=== PATIENT | male | born 1995 | race African-American/Black ===

== ENCOUNTER 2023-07-28 17:18 | Emergency (ER) | payer OTHER ==
[~2023-07-28] VITALS: Ht 175.3 cm; Wt 71.5 kg
[2023-07-28 17:32] VITALS: TEMP 97.7
[2023-07-28 18:37] LABS: BASOPHILS % (AUTO) 0.4 % (0.0-2.0); EOSINOPHILS % (AUTO) 0.9 % (1.0-6.0); HEMATOCRIT 24.3 % (41-53); HEMOGLOBIN 8.1 g/dL (13.5-17.5); LYMPHOCYTES # (AUTO) 0.5 K/uL (1.0-4.8); LYMPHOCYTES % (AUTO) 20.5 % (22.0-44.0); MEAN CORPUSCULAR HEMOGLOBIN 30.7 pg (26.0-34.0); MEAN CORPUSCULAR HGB CONC 33.2 G/dL (31.0-37.0); MEAN CORPUSCULAR VOLUME 93 fL (80-100); MONOCYTES # (AUTO) 0.1 K/uL (0.1-1.0); MONOCYTES % (AUTO) 5.2 % (2.0-9.0); NEUTROPHILS # (AUTO) 1.7 K/uL (1.8-7.7); PLATELET COUNT (AUTO) 141 K/uL (150-450); RED BLOOD CELL COUNT(AUTO) 2.63 MIL/uL (4.50-5.90); RED CELL DISTRIBUTION WIDTH 21.5 % (11.5-14.5); WHITE BLOOD COUNT (AUTO) 2.4 K/uL (4.5-11.0)
[2023-07-28 18:49] LABS: ANION GAP 6 mmol/L (8-16); CALCIUM, TOTAL 8.2 mg/dL (8.8-10.5); CARBON DIOXIDE 26 mmol/L (22-29); CHLORIDE 105 mmol/L (98-107); CREATININE 0.56 mg/dL (0.60-1.30); GLOMERULAR FILTR. RATE CALC > 60 mL/min (>60); GLUCOSE,RANDOM 99 mg/dL (70-110); POTASSIUM 3.8 mmol/L (3.5-5.1); SODIUM SERUM 137 mmol/L (136-145); UREA NITROGEN, BLOOD 7 mg/dL (7-18)
[2023-07-28 18:54] LABS: ALANINE AMINOTRANSFERASE 28 U/L (12-78); ALBUMIN 2.8 g/dL (3.4-5.0); ALKALINE PHOSPHATASE 97 U/L (46-116); ASPARTATE AMINOTRANSFERASE 34 U/L (15-37); BILIRUBIN,TOTAL 0.8 mg/dL (0.1-1.0); CREATINE KINASE, TOTAL ONLY 49 U/L (39-308); PHOSPHORUS 3.4 mg/dL (2.5-4.9); TOTAL PROTEIN, SERUM 6.2 g/dL (6.4-8.2)
[2023-07-28 18:59] LABS: LACTIC ACID 1.7 mmol/L (0.4-2.0)
[2023-07-28 19:00] LABS: TROPONIN I-HIGH SENSITIVITY 5 ng/L (<76)
[2023-07-28 19:08] LABS: B-TYPE NATRIURETIC PEPTIDE 26 pg/mL (0-100)
[2023-07-28 19:13] LABS: RBC MORPHOLOGY COMMENT ABNORMAL RBC MORPH
[2023-07-28] MEDS: CefTRIAXone 1 GM/DEXTROSE 50 ML IV ONE (19:31)
[2023-07-28] MEDS: AZITHROMYCIN 500 MG/NS 250 ML IV ONE (19:54)
[2023-07-28] MEDS: ACETAMINOPHEN 500 MG TABLET PO ONE (21:05)
[2023-07-28] MEDS: SODIUM CHLORIDE 0.9% 1,000 ML IV ONE (21:05)
[2023-07-28 21:38] VITALS: BP 104/64; PULSE 76; RESP 18
[2023-07-28 21:52] LABS: COVID AG,FIA SOURCE NASAL SWAB
[2023-07-28 22:16] LABS: INFLUENZA TYPE A NEGATIVE FOR TYPE A (NEGATIVE); INFLUENZA TYPE B NEGATIVE FOR TYPE B (NEGATIVE); SARS-COV2 (COVID) ANTIGEN,FIA Negative (Negative)
== END 2023-07-28 22:30 | disposition short-term general hospital (02) ==
LOC: EMS 17:20
DX: J18.9 Pneumonia, unspecified organism (principal); R55 Syncope and collapse; Z20.822 Contact with and (suspected) exposure to COVID-19
CPT/HCPCS: 99285; 96365; 70450; 71045; 96361; 87426; 80053; 82140; 82550; 83605; 83735; 83880; 84100; 84484; 85025; 87040; 87804; 93005; 96368; 36415; J0456; J0696; J7030